=== PATIENT | female | born 1960 | race Caucasian/White ===

== ENCOUNTER 2020-05-29 10:36 | Inpatient (IN) | payer MEDICAID, OTHER ==
[2020-05-29] MEDS ORDERED: Sodium Chloride 0.9% 10 ML Syringe FLUSH PRN ×2 (11:17→11:27)
[2020-05-29] MEDS ORDERED: Ondansetron 4 MG/2 ML SDV IVPUSH ONE (11:19)
[2020-05-29] MEDS ORDERED: Sodium Chloride 0.9% 1,000 ML IV STA (11:19)
[2020-05-29] MEDS ORDERED: HYDROmorphone 0.5 MG/0.5 ML Syringe IVPUSH ONE (11:19)
[2020-05-29] MEDS ORDERED: Ketorolac 30 MG/ML SDV IVPUSH ONE (11:20)
[2020-05-29] MEDS ORDERED: Iopamidol 612 MG/ML 100 ML Bottle IVPUSH ONE (11:27)
--- NOTE | 2020-05-29 11:59 | EDM.PDOC ---
ED HPI GENERAL MEDICAL PROBLEM - General Chief Complaint: Skin Complaint Stated Complaint: FEVER/HIGH BP/ABSCESS OF BUTTOCK Time Seen by Provider: 05/29/20 11:03 Source of Information: Reports: Patient, RN Notes Reviewed History Limitations: Reports: No Limitations, Other - History of Present Illness INITIAL COMMENTS - FREE TEXT/NARRATIVE: Patient is a 60-year-old female presenting to the emergency department with complaints of a painful, red, area of swelling to her right buttocks. She first noticed the area 4 days ago and it has been rapidly increasing in size and severity since that time. Patient states that she has a history of MRSA and has had numerous infections requiring hospitalization for IV antibiotics. She states yesterday she had a fever of 101. She was afebrile in triage, however she states she did take some Excedrin this morning. She does complain of nausea with no vomiting. Patient has a history of hypertension and type 2 diabetes. States that she is supposed to be taking blood pressure medications, however she has not followed up with a primary care provider since moving to the area 1 year ago. Blood pressure was found to be significantly elevated on triage at 225/113. She denies headache, dizziness, or vision changes. Right Buttock Pain Score (Numeric/FACES): 10 - Related Data Allergies Allergy/AdvReac Type Severity Reaction Status Date / Time adhesive tape Allergy Severe Rash Verified 05/29/20 11:08 Home Meds: Home Meds Aspirin/Acetaminophen/Caffeine [Excedrin Migraine Caplet] 1 each PO DAILY PRN 05/29/20 [History] Past Medical History Cardiovascular History: Reports: High Cholesterol, Hypertension SOLUTIONS SPECIALIST History: Reports: Musculoskeletal History: Reports: Other (See Below) Other Musculoskeletal History: RLS Endocrine/Metabolic History: Reports: Diabetes, Type II, Obesity/BMI 30+ - Infectious Disease History Infectious Disease History: Reports: MRSA - Past Surgical History HEENT Surgical History: Reports: Adenoidectomy, Tonsillectomy GI Surgical History: Reports: Cholecystectomy Female Surgical History: Reports: Hysterectomy Social & Family History - Tobacco Use Tobacco Use Status *Q: Current Every Day Tobacco User Years of Tobacco use: 35 Packs/Tins Daily: 0.5 - Caffeine Use Caffeine Use: Reports: None - Recreational Drug Use Recreational Drug Use: No ED ROS GENERAL - Review of Systems Review Of Systems: See Below Constitutional: Reports: Fever, Chills. Denies: Weakness HEENT: Reports: No Symptoms Respiratory: Reports: No Symptoms. Denies: Shortness of Breath, Cough Cardiovascular: Reports: No Symptoms Endocrine: Reports: No Symptoms GI/Abdominal: Reports: Nausea. Denies: Abdominal Pain, Diarrhea, Vomiting : Reports: No Symptoms Musculoskeletal: Reports: No Symptoms Skin: Reports: Other (Red, swollen, painful area to right buttocks.) Neurological: Reports: No Symptoms Psychiatric: Reports: No Symptoms Hematologic/Lymphatic: Reports: No Symptoms Immunologic: Reports: No Symptoms ED EXAM, SKIN/RASH Exam: See Below Exam Limited By: No Limitations General Appearance: Alert, WD/WN, No Apparent Distress Respiratory/Chest: No Respiratory Distress, Lungs Clear, Normal Breath Sounds, No Accessory Muscle Use, Chest Non-Tender Cardiovascular: Normal Peripheral Pulses, Regular Rate, Rhythm, No Edema, No Gallop, No JVD, No Murmur, No Rub GI/Abdominal: Normal Bowel Sounds, Soft, Non-Tender, No Organomegaly, No Distention, No Abnormal Bruit, No Mass Neurological: Alert, Oriented, CN II-XII Intact, Normal Cognition, Normal Gait, Normal Reflexes, No Motor/Sensory Deficits Psychiatric: Normal Affect, Normal Mood Skin: Other (10 cm area of redness and warmth with a 1.5 cm black scab to the right buttocks. Surrounding soft tissue swelling measures aprox 20 cm x 20 cm) Course - Vital Signs Last Recorded V/S: Last Vital Signs Temp 97.3 F 05/29/20 11:05 Pulse 78 05/29/20 13:30 Resp 16 05/29/20 13:30 BP 169/86 H 05/29/20 13:30 Pulse Ox 95 05/29/20 13:30 - Orders/Labs/Meds Orders: Active Orders 24 hr Category Date Time Status Peripheral IV Care [RC] . DIRECTED Care 05/29/20 11:18 Active Pelvis w Cont [CT] Stat Exams 05/29/20 11:24 Taken CULTURE BLOOD [BC] Stat Lab 05/29/20 11:30 Received CULTURE BLOOD [BC] Stat Lab 05/29/20 12:50 Received Pharmacy to Dose - Vancomycin Med 05/29/20 13:00 Active 1 dose .XX ASDIRECTED PRN Sodium Chloride 0.9% [Normal Saline] 1,000 ml Med 05/29/20 11:19 Active IV NOW Sodium Chloride 0.9% [Saline Flush] Med 05/29/20 11:17 Active 10 ml FLUSH ASDIRECTED PRN Sodium Chloride 0.9% [Saline Flush] Med 05/29/20 11:27 Active 10 ml FLUSH ONETIME PRN Vancomycin 1.75 gm Med 05/29/20 13:30 Active Sodium Chloride 0.9% [Normal Saline] 500 ml IV ONETIME Blood Culture x2 Reflex Set [OM.PC] Stat Ot 05/29/20 11:18 Ordered Peripheral IV Insertion Adult [OM.PC] Stat Ot 05/29/20 11:18 Ordered Medication Orders Sodium Chloride (Normal Saline) 1,000 mls @ 150 mls/hr IV NOW STA Stop: 05/29/20 17:58 Last Admin: 05/29/20 11:51 Dose: 150 mls/hr Documented by: NAFISAERELI Vancomycin HCl 1.75 gm/ Sodium (Chloride) 500 mls @ 250 mls/hr IV ONETIME ONE Stop: 05/29/20 15:29 Last Admin: 05/29/20 13:16 Dose: 250 mls/hr Documented by: NAFISAERELI Sodium Chloride (Saline Flush) 10 ml FLUSH ASDIRECTED PRN PRN Reason: Keep Vein Open Last Admin: 05/29/20 11:51 Dose: 10 ml Documented by: EBERELI Sodium Chloride (Saline Flush) 10 ml FLUSH ONETIME PRN PRN Reason: IV FLUSH Last Admin: 05/29/20 12:15 Dose: 10 ml Documented by: GEMMA Vancomycin HCl (Pharmacy To Dose - Vancomycin) 1 dose .XX ASDIRECTED PRN PRN Reason: RX TO DOSE VANCO Labs: Laboratory Tests 05/29/20 05/29/20 05/29/20 Range/Units 11:30 11:30 11:30 WBC 13.94 H (3.98-10.04) K/mm3 RBC 4.62 (3.98-5.22) M/mm3 Hgb 13.9 (11.2-15.7) gm/dl Hct 42.4 (34.1-44.9) % MCV 91.8 (79.4-94.8) fl MCH 30.1 (25.6-32.2) pg MCHC 32.8 (32.2-35.5) g/dl RDW Std Deviation 44.5 (36.4-46.3) fL Plt Count 220 (182-369) K/mm3 MPV 10.0 (9.4-12.3) fl Neut % (Auto) 78.4 H (34.0-71.1) % Lymph % (Auto) 12.5 L (19.3-51.7) % [place] % (Auto) 7.9 (4.7-12.5) % Eos % (Auto) 0.6 L (0.7-5.8) Baso % (Auto) 0.1 (0.1-1.2) % Neut # (Auto) 10.93 H (1.56-6.13) K/mm3 Lymph # (Auto) 1.74 (1.18-3.74) K/mm3 [place] # (Auto) 1.10 H (0.24-0.36) K/mm3 Eos # (Auto) 0.08 (0.04-0.36) K/mm3 Baso # (Auto) 0.02 (0.01-0.08) K/mm3 Manual Slide Review Normal smear Sodium 137 (136-145) mEq/L Potassium 4.3 (3.5-5.1) mEq/L Chloride 101 (98-107) mEq/L Carbon Dioxide 24 (21-32) mEq/L Anion Gap 16.3 H (5-15) BUN 18 (7-18) mg/dL Creatinine 1.2 H (0.55-1.02) mg/dL Est Cr Clr Drug Dosing 47.84 mL/min Estimated GFR (MDRD) 46 (>60) mL/min BUN/Creatinine Ratio 15.0 (14-18) Glucose 161 H (74-106) mg/dL Lactic Acid 1.0 (0.4-2.0) mmol/L Calcium 9.1 (8.5-10.1) mg/dL Total Bilirubin 0.5 (0.2-1.0) mg/dL AST 15 (15-37) U/L ALT 28 (14-59) U/L Alkaline Phosphatase 101 (46-116) U/L C-Reactive Protein 17.3 H* (<1.0) mg/dL Total Protein 7.5 (6.4-8.2) g/dl Albumin 3.1 L (3.4-5.0) g/dl Globulin 4.4 gm/dL Albumin/Globulin Ratio 0.7 L (1-2) SARS-CoV-2 RNA (NATHEN) (NEGATIVE) 05/29/20 Range/Units 12:18 WBC (3.98-10.04) K/mm3 RBC (3.98-5.22) M/mm3 Hgb (11.2-15.7) gm/dl Hct (34.1-44.9) % MCV (79.4-94.8) fl MCH (25.6-32.2) pg MCHC (32.2-35.5) g/dl RDW Std Deviation (36.4-46.3) fL Plt Count (182-369) K/mm3 MPV (9.4-12.3) fl Neut % (Auto) (34.0-71.1) % Lymph % (Auto) (19.3-51.7) % [place] % (Auto) (4.7-12.5) % Eos % (Auto) (0.7-5.8) Baso % (Auto) (0.1-1.2) % Neut # (Auto) (1.56-6.13) K/mm3 Lymph # (Auto) (1.18-3.74) K/mm3 [place] # (Auto) (0.24-0.36) K/mm3 Eos # (Auto) (0.04-0.36) K/mm3 Baso # (Auto) (0.01-0.08) K/mm3 Manual Slide Review Sodium (136-145) mEq/L Potassium (3.5-5.1) mEq/L Chloride (98-107) mEq/L Carbon Dioxide (21-32) mEq/L Anion Gap (5-15) BUN (7-18) mg/dL Creatinine (0.55-1.02) mg/dL Est Cr Clr Drug Dosing mL/min Estimated GFR (MDRD) (>60) mL/min BUN/Creatinine Ratio (14-18) Glucose (74-106) mg/dL Lactic Acid (0.4-2.0) mmol/L Calcium (8.5-10.1) mg/dL Total Bilirubin (0.2-1.0) mg/dL AST (15-37) U/L ALT (14-59) U/L Alkaline Phosphatase (46-116) U/L C-Reactive Protein (<1.0) mg/dL Total Protein (6.4-8.2) g/dl Albumin (3.4-5.0) g/dl Globulin gm/dL Albumin/Globulin Ratio (1-2) SARS-CoV-2 RNA (NATHEN) Negative (NEGATIVE) Meds: Medications Generic Name Dose Route Start Last Admin Trade Name Lroi PRN Reason Stop Dose Admin Sodium Chloride 1,000 mls @ 150 mls/hr 05/29/20 11:19 05/29/20 11:51 Normal Saline IV 05/29/20 17:58 150 mls/hr NOW STA Administration Vancomycin HCl 1.75 gm/ Sodium 500 mls @ 250 mls/hr 05/29/20 13:30 05/29/20 13:16 Chloride IV 05/29/20 15:29 250 mls/hr ONETIME ONE Administration Sodium Chloride 10 ml 05/29/20 11:17 05/29/20 11:51 Saline Flush FLUSH 10 ml ASDIRECTED PRN Administration Keep Vein Open Sodium Chloride 10 ml 05/29/20 11:27 05/29/20 12:15 Saline Flush FLUSH 10 ml ONETIME PRN Administration IV FLUSH Vancomycin HCl 1 dose 05/29/20 13:00 Pharmacy To Dose - Vancomycin .XX ASDIRECTED PRN RX TO DOSE VANCO Discontinued Medications Generic Name Dose Route Start Last Admin Trade Name Lori PRN Reason Stop Dose Admin Hydralazine HCl 10 mg 05/29/20 12:44 05/29/20 12:50 Apresoline IVPUSH 05/29/20 12:45 10 mg ONETIME ONE Administration Hydromorphone HCl 0.5 mg 05/29/20 11:19 Dilaudid IVPUSH 05/29/20 11:20 ONETIME ONE Iopamidol 100 ml 05/29/20 11:27 05/29/20 12:15 Isovue-300 (61%) IVPUSH 05/29/20 11:28 100 ml ONETIME ONE Administration Ketorolac Tromethamine 30 mg 05/29/20 11:20 05/29/20 11:51 Toradol IVPUSH 05/29/20 11:21 30 mg ONETIME ONE Administration Ondansetron HCl 4 mg 05/29/20 11:19 05/29/20 11:50 Zofran IVPUSH 05/29/20 11:20 4 mg ONETIME ONE Administration Vancomycin HCl 1 dose 05/29/20 12:44 Pharmacy To Dose - Vancomycin .XX 05/29/20 12:45 ONETIME ONE - Re-Assessments/Exams Free Text/Narrative Re-Assessment/Exam: 05/29/20 12:53 Hematology was significant for WBC elevated at 13.94 with a left shift, anion gap 16.3, CRP 17.3. Lactic acid was normal. Blood pressure remains elevated at 181/104. I ordered hydralazine [address] scan of the pelvis shows extensive swelling and stranding of the subcutaneous tissues of the right buttocks most likely cellulitis. No focal collection or other evidence of abscess. Given patient's history of recurrent MRSA infections, ordered vancomycin to be given IV. Spoke with hospitalist, Dr. Brown. He is excepted the patient for admission. Patient's pain is tolerable at this point with the Toradol. She does not want any narcotic medications as of now as they make her "groggy ". Departure - Departure Time of Disposition: 12:53 Disposition: Admitted As Inpatient 68 Condition: Good Clinical Impression: Hypertension, uncontrolled Cellulitis Qualifiers: Site of cellulitis: buttock Qualified Code(s): L03.317 - Cellulitis of buttock - Discharge Information Sepsis Event Note (ED) - Evaluation Sepsis Screening Result: No Definite Risk - Focused Exam Vital Signs: Vital Signs Temp Pulse Resp BP Pulse Ox 05/29/20 13:00 179/94 H 05/29/20 12:45 74 181/104 H 94 L 05/29/20 12:30 183/94 H 05/29/20 11:05 97.3 F 86 20 225/113 H 98 - My Orders Last 24 Hours: My Active Orders 05/29/20 11:17 Sodium Chloride 0.9% [Saline Flush] 10 ml FLUSH ASDIRECTED PRN 05/29/20 11:18 Peripheral IV Care [RC] . DIRECTED Blood Culture x2 Reflex Set [OM.PC] Stat Peripheral IV Insertion Adult [OM.PC] Stat 05/29/20 11:19 Sodium Chloride 0.9% [Normal Saline] 1,000 ml IV NOW 05/29/20 11:24 Pelvis w Cont [CT] Stat 05/29/20 11:27 Sodium Chloride 0.9% [Saline Flush] 10 ml FLUSH ONETIME PRN 05/29/20 11:30 CULTURE BLOOD [BC] Stat 05/29/20 12:50 CULTURE BLOOD [BC] Stat 05/29/20 13:00 Pharmacy to Dose - Vancomycin 1 dose .XX ASDIRECTED PRN 05/29/20 13:30 Vancomycin 1.75 gm Sodium Chloride 0.9% [Normal Saline] 500 ml IV ONETIME - Assessment/Plan Last 24 Hours: My Active Orders 05/29/20 11:17 Sodium Chloride 0.9% [Saline Flush] 10 ml FLUSH ASDIRECTED PRN 05/29/20 11:18 Peripheral IV Care [RC] . DIRECTED Blood Culture x2 Reflex Set [OM.PC] Stat Peripheral IV Insertion Adult [OM.PC] Stat 05/29/20 11:19 Sodium Chloride 0.9% [Normal Saline] 1,000 ml IV NOW 05/29/20 11:24 Pelvis w Cont [CT] Stat 05/29/20 11:27 Sodium Chloride 0.9% [Saline Flush] 10 ml FLUSH ONETIME PRN 05/29/20 11:30 CULTURE BLOOD [BC] Stat 05/29/20 12:50 CULTURE BLOOD [BC] Stat 05/29/20 13:00 Pharmacy to Dose - Vancomycin 1 dose .XX ASDIRECTED PRN 05/29/20 13:30 Vancomycin 1.75 gm Sodium Chloride 0.9% [Normal Saline] 500 ml IV ONETIME
[2020-05-29] MEDS ORDERED: hydrALAZINE 20 MG/ML SDV IVPUSH ONE (12:44)
[2020-05-29] MEDS ORDERED: Vancomycin 1.75 GM in Sodium Chloride 0.9% 500 ML IV ONE (13:30)
--- NOTE | 2020-05-29 15:21 | PCM.HP.2 ---
H&P History of Present Illness - General Date of Service: 05/29/20 Admit Problem/Dx: Admission Diagnosis/Problem Admission Diagnosis/Problem Cellulitis - History of Present Illness Initial Comments - Free Text/Narative: 60-year-old female with history of MRSA skin lesions presented to the emergency department with a 4-day history of pain, swelling, and redness of the right buttocks. Patient states that she had a fever over 101 yesterday and a history of prediabetes. She has been on medicine in the past but stopped all of her medications. She moved to [place] proximally 1 year ago and has not established with a primary care provider. Patient denies any shortness of breath, wheezing, or chest pain. She has a history of migraine headache disorder. She takes Excedrin migraine regularly for her headaches. She also drinks large amounts of coffee. When I did visit with her today she complained of a headache. 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: Musculoskeletal History: Reports: Arthritis Other Musculoskeletal History: RLS Neurological History: Reports: Migraines Psychiatric History: Reports: Anxiety, Depression Endocrine/Metabolic History: Reports: Diabetes, Type II, Obesity/BMI 30+, Other (See Below) Other Endocrine/Metabolic History: "pre-diabetes" Dermatologic History: Reports: Cellulitis Other Dermatologic History: boils on buttocks - Infectious Disease History Infectious Disease History: Reports: MRSA - Past Surgical History HEENT Surgical History: Reports: Adenoidectomy, Tonsillectomy GI Surgical History: Reports: Cholecystectomy Female Surgical History: Reports: Hysterectomy Social & Family History - Tobacco Use Tobacco Use Status *Q: Current Some Day Tobacco User Years of Tobacco use: 43 Packs/Tins Daily: 0.5 Used Tobacco, but Quit: No Second Hand Smoke Exposure: No - Caffeine Use Caffeine Use: Reports: Coffee - Recreational Drug Use Recreational Drug Use: No H&P Review of Systems - Review of Systems: Review Of Systems: Comprehensive ROS is negative, except as noted in HPI. Exam - Exam Exam: See Below - Vital Signs Vital Signs: Last Vital Signs Temp 98.2 F 05/29/20 14:31 Pulse 101 H 05/29/20 14:31 Resp 16 05/29/20 14:31 BP 163/84 H 05/29/20 14:31 Pulse Ox 97 05/29/20 14:31 Weight: 255 lb 6.4 oz - Exam Quality Assessment: No: Supplemental Oxygen General: Alert, Oriented, 4 HEENT: Conjunctiva Clear, Hearing Intact, Mucosa Moist & [place] Neck: Supple, Trachea Midline, 2 Lungs: Clear to Auscultation, Normal Respiratory Effort Cardiovascular: Regular Rate, Regular Rhythm GI/Abdominal Exam: Normal Bowel Sounds, Soft, Non-Tender, No Organomegaly, No Distention, No Abnormal Bruit, No Mass, Other (Obese) Extremities: Normal Inspection, Normal Range of Motion, Non-Tender, No Pedal Edema, Normal Capillary Refill Skin: Other (Eschar approximately 1 cm in diameter on the right buttocks with surrounding area of erythema of approximately 9 to 10 cm. Well demarcated.) Neuro Extensive - Mental Status: Alert, Oriented x3, Normal Mood/Affect, Normal Cognition, Memory Intact Psychiatric: Alert, Normal Affect, Normal Mood - Patient Data Lab Results Last 24 hrs: Laboratory Results - last 24 hr 05/29/20 05/29/20 05/29/20 Range/Units 11:30 11:30 11:30 WBC 13.94 H (3.98-10.04) K/mm3 RBC 4.62 (3.98-5.22) M/mm3 Hgb 13.9 (11.2-15.7) gm/dl Hct 42.4 (34.1-44.9) % MCV 91.8 (79.4-94.8) fl MCH 30.1 (25.6-32.2) pg MCHC 32.8 (32.2-35.5) g/dl RDW Std Deviation 44.5 (36.4-46.3) fL Plt Count 220 (182-369) K/mm3 MPV 10.0 (9.4-12.3) fl Neut % (Auto) 78.4 H (34.0-71.1) % Lymph % (Auto) 12.5 L (19.3-51.7) % [place] % (Auto) 7.9 (4.7-12.5) % Eos % (Auto) 0.6 L (0.7-5.8) Baso % (Auto) 0.1 (0.1-1.2) % Neut # (Auto) 10.93 H (1.56-6.13) K/mm3 Lymph # (Auto) 1.74 (1.18-3.74) K/mm3 [place]ell # (Auto) 1.10 H (0.24-0.36) K/mm3 Eos # (Auto) 0.08 (0.04-0.36) K/mm3 Baso # (Auto) 0.02 (0.01-0.08) K/mm3 Manual Slide Review Normal smear Sodium 137 (136-145) mEq/L Potassium 4.3 (3.5-5.1) mEq/L Chloride 101 (98-107) mEq/L Carbon Dioxide 24 (21-32) mEq/L Anion Gap 16.3 H (5-15) BUN 18 (7-18) mg/dL Creatinine 1.2 H (0.55-1.02) mg/dL Est Cr Clr Drug Dosing 47.84 mL/min Estimated GFR (MDRD) 46 (>60) mL/min BUN/Creatinine Ratio 15.0 (14-18) Glucose 161 H (74-106) mg/dL Lactic Acid 1.0 (0.4-2.0) mmol/L Calcium 9.1 (8.5-10.1) mg/dL Total Bilirubin 0.5 (0.2-1.0) mg/dL AST 15 (15-37) U/L ALT 28 (14-59) U/L Alkaline Phosphatase 101 (46-116) U/L C-Reactive Protein 17.3 H* (<1.0) mg/dL Total Protein 7.5 (6.4-8.2) g/dl Albumin 3.1 L (3.4-5.0) g/dl Globulin 4.4 gm/dL Albumin/Globulin Ratio 0.7 L (1-2) SARS-CoV-2 RNA (NATHEN) (NEGATIVE) 05/29/20 Range/Units 12:18 WBC (3.98-10.04) K/mm3 RBC (3.98-5.22) M/mm3 Hgb (11.2-15.7) gm/dl Hct (34.1-44.9) % MCV (79.4-94.8) fl MCH (25.6-32.2) pg MCHC (32.2-35.5) g/dl RDW Std Deviation (36.4-46.3) fL Plt Count (182-369) K/mm3 MPV (9.4-12.3) fl Neut % (Auto) (34.0-71.1) % Lymph % (Auto) (19.3-51.7) % [place] % (Auto) (4.7-12.5) % Eos % (Auto) (0.7-5.8) Baso % (Auto) (0.1-1.2) % Neut # (Auto) (1.56-6.13) K/mm3 Lymph # (Auto) (1.18-3.74) K/mm3 [place]ell # (Auto) (0.24-0.36) K/mm3 Eos # (Auto) (0.04-0.36) K/mm3 Baso # (Auto) (0.01-0.08) K/mm3 Manual Slide Review Sodium (136-145) mEq/L Potassium (3.5-5.1) mEq/L Chloride (98-107) mEq/L Carbon Dioxide (21-32) mEq/L Anion Gap (5-15) BUN (7-18) mg/dL Creatinine (0.55-1.02) mg/dL Est Cr Clr Drug Dosing mL/min Estimated GFR (MDRD) (>60) mL/min BUN/Creatinine Ratio (14-18) Glucose (74-106) mg/dL Lactic Acid (0.4-2.0) mmol/L Calcium (8.5-10.1) mg/dL Total Bilirubin (0.2-1.0) mg/dL AST (15-37) U/L ALT (14-59) U/L Alkaline Phosphatase (46-116) U/L C-Reactive Protein (<1.0) mg/dL Total Protein (6.4-8.2) g/dl Albumin (3.4-5.0) g/dl Globulin gm/dL Albumin/Globulin Ratio (1-2) SARS-CoV-2 RNA (NATHEN) Negative (NEGATIVE) Result Diagrams: 05/29/20 11:30 05/29/20 11:30 Sepsis Event Note - Evaluation Sepsis Screening Result: No Definite Risk - Focused Exam Vital Signs: Vital Signs Temp Temp Pulse Pulse Resp BP BP 05/29/20 14:31 98.2 F 101 H 16 163/84 H 05/29/20 13:30 78 16 169/86 H 05/29/20 13:00 179/94 H 05/29/20 12:45 74 181/104 H 05/29/20 12:30 183/94 H 05/29/20 11:05 97.3 F 86 20 225/113 H Pulse Ox 05/29/20 14:31 97 05/29/20 13:30 95 05/29/20 13:00 05/29/20 12:45 94 L 05/29/20 12:30 05/29/20 11:05 98 - Problem List (1) Type 2 diabetes mellitus SNOMED Code(s): 71320118 ICD Code: E11.9 - TYPE 2 DIABETES MELLITUS WITHOUT COMPLICATIONS Status: Acute Current Visit: Yes (2) Smoking SNOMED Code(s): 09438997 ICD Code: F17.200 - NICOTINE DEPENDENCE, UNSPECIFIED, UNCOMPLICATED Status: Acute Current Visit: Yes (3) Cellulitis SNOMED Code(s): 305304414 ICD Code: L03.90 - CELLULITIS, UNSPECIFIED Status: Acute Current Visit: Yes Qualifiers: Site of cellulitis: buttock Qualified Code(s): L03.317 - Cellulitis of buttock (4) Hypertension, uncontrolled SNOMED Code(s): 17051274, 70186795 ICD Code: I10 - ESSENTIAL (PRIMARY) HYPERTENSION Status: Acute Current Visit: Yes (5) Acute renal injury SNOMED Code(s): 69346181, 05943514 ICD Code: N17.9 - ACUTE KIDNEY FAILURE, UNSPECIFIED Status: Acute Current Visit: Yes Problem Details: Acute versus chronic renal insufficiency. Patient has history of diabetes and also takes large amounts of NSAIDs for headaches daily. (6) Headache SNOMED Code(s): 56476936 ICD Code: R51.9 - HEADACHE, UNSPECIFIED Status: Acute Current Visit: Yes (7) Hypoalbuminemia SNOMED Code(s): 325675570 ICD Code: E88.09 - OTH DISORDERS OF PLASMA-PROTEIN METABOLISM, NEC Status: Acute Current Visit: Yes Problem List Initiated/Reviewed/Updated: Yes Orders Last 24hrs: Active Orders 24 hr Category Date Time Status Patient Status [ADT] Routine ADT 05/29/20 13:19 Active Pelvis w Cont [CT] Stat Exams 05/29/20 11:24 Taken CULTURE BLOOD [BC] Stat Lab 05/29/20 11:30 Received CULTURE BLOOD [BC] Stat Lab 05/29/20 12:50 Received VANCOMYCIN TROUGH [CHEM] Timed Lab 05/31/20 12:30 Ordered Nicotine [Habitrol] Med 05/29/20 16:00 Active 14 mg TRDERM Q24H Pharmacy to Dose - Vancomycin Med 05/29/20 13:00 Active 1 dose .XX ASDIRECTED PRN Remove Patch Med 05/30/20 16:00 Active 1 ea TRDERM Q24H Sodium Chloride 0.9% [Normal Saline] 1,000 ml Med 05/29/20 11:19 Active IV NOW Sodium Chloride 0.9% [Saline Flush] Med 05/29/20 11:17 Active 10 ml FLUSH ASDIRECTED PRN Vancomycin 1 gm Med 05/30/20 01:30 Active Vancomycin 250 mg Sodium Chloride 0.9% [Normal Saline] 250 ml IV Q12H Vancomycin 1.75 gm Med 05/29/20 13:30 Active Sodium Chloride 0.9% [Normal Saline] 500 ml IV ONETIME Blood Culture x2 Reflex Set [OM.PC] Stat Oth 05/29/20 11:18 Ordered Peripheral IV Insertion Adult [OM.PC] Stat Oth 05/29/20 11:18 Ordered Medication Orders Sodium Chloride (Normal Saline) 1,000 mls @ 150 mls/hr IV NOW STA Stop: 05/29/20 17:58 Last Admin: 05/29/20 11:51 Dose: 150 mls/hr Documented by: EBERELI Vancomycin HCl 1.75 gm/ Sodium (Chloride) 500 mls @ 250 mls/hr IV ONETIME ONE Stop: 05/29/20 15:29 Last Admin: 05/29/20 13:16 Dose: 250 mls/hr Documented by: EBERELI Vancomycin HCl 1 gm/Vancomycin HCl 250 mg/ Sodium Chloride 250 mls @ 166.667 mls/hr IV Q12H ALLYSSA Miscellaneous Information (Remove Patch) 1 ea TRDERM Q24H ALLYSSA Nicotine (Habitrol) 14 mg TRDERM Q24H ALLYSSA Sodium Chloride (Saline Flush) 10 ml FLUSH ASDIRECTED PRN PRN Reason: Keep Vein Open Last Admin: 05/29/20 11:51 Dose: 10 ml Documented by: NIKKI Vancomycin HCl (Pharmacy To Dose - Vancomycin) 1 dose .XX ASDIRECTED PRN PRN Reason: RX TO DOSE VANCO Assessment/Plan Comment:: Assessment 60-year-old female with history of MRSA skin infection presented to the emergency department with pain, redness, and swelling of her right buttocks starting 4 days ago. * Cellulitis right butt cheek with eschar * WBC 13.9 with 10.9 absolute neutrophils and normal smear. * C-reactive protein 17.3 * Mild anion gap of 16.3, normal lactic acid * Procalcitonin pending * Started on vancomycin in the emergency department for history of MRSA * Blood cultures done in the emergency department Uncontrolled/untreated hypertension * Blood pressure significantly elevated on admission with highest blood pressure of 225/113. * Given hydralazine 10 mg IV in the emergency department * Blood pressure continues to be elevated. * Renal dysfunction also noted * Pain may be contributing to some degree of hypertension Type 2 diabetes mellitus * Hemoglobin A1c of 6.5 * Blood sugars 160 on presentation * No current treatment for her diabetes * Unknown any complications Acute versus chronic renal insufficiency * Patient states she has a history of headaches and takes ibuprofen and Excedrin Migraine. * Patient also has a history of diabetes and hypertension Headache disorder, unknown type * She likely has some degree of rebound headache with her use of Excedrin Migraine * NSAID use is likely worsening renal function * Try to avoid NSAIDs while hospitalized Hypoalbuminemia * UA not performed so unknown if this is secondary to renal loss or protein malnutrition Tobaccoism * Smokes half pack per day for approximately 35 years * Patient requesting patch Plan * Admit to floor * Continue vancomycin, pharmacy to dose * Wound therapy to treat buttocks wound * Follow white count, C-reactive protein, procalcitonin, temperature, and measure and familia cellulitis * Blood cultures drawn in the emergency department * Start losartan 50 mg daily * Yet urine for microalbumin to creatinine ratio and spot protein check * Sliding scale insulin * Hydralazine 10 mg IV every 4 hours as needed systolic blood pressure greater than 180 and diastolic blood pressure greater than 110 * [place] 10 mg every 4 hours as needed pain. * Counseled on smoking cessation and nicotine patch prescribed * VTE prophylaxis with Lovenox * CODE STATUS: Full code - Mortality Measure Prognosis:: Good
[2020-05-29] MEDS ORDERED: Ondansetron 4 MG/2 ML SDV IV PRN (15:34)
[2020-05-29] MEDS ORDERED: Nicotine 14 MG/24 Hr Patch TRDERM SCH (16:00)
[2020-05-29 16:20] LABS: HEMOGLOBIN A1C 6.5 % (4.50-6.20)
[2020-05-29] MEDS ORDERED: traMADol 50 MG Tab PO ONE ×2 (16:56→18:11)
[2020-05-29] MEDS ORDERED: hydrALAZINE 20 MG/ML SDV IVPUSH PRN (20:50)
[2020-05-29] MEDS: diphenhydrAMINE 25 MG Cap PO PRN (21:57)
[2020-05-29] MEDS: Acetaminophen/HYDROcodone 325-10 MG Tab PO PRN (21:58)
[2020-05-30] MEDS: Vancomycin 1 GM, Vancomycin 250 MG in Sodium Chloride 0.9% 250 ML IV SCH ×2 (00:36→14:32)
[2020-05-30] MEDS: Acetaminophen/HYDROcodone 325-10 MG Tab PO PRN ×5 (02:16→19:07)
[2020-05-30] MEDS: Losartan 50 MG Tab PO SCH (08:39)
[2020-05-30] MEDS: Enoxaparin 40 MG/0.4 ML Syringe SUBCUT SCH (08:40)
--- NOTE | 2020-05-30 09:45 | PCM.PN ---
- General Info Date of Service: 05/30/20 Admission Dx/Problem (Free Text): Admission Diagnosis/Problem Admission Diagnosis/Problem Cellulitis Subjective Update: In to see Sandy. She reports that her wound is the only thing hurting. She reports that it hurt worse with PT when they were debriding wound. Nursing reports PT irrigated with saline, applied Medihoney and a nonadhesive bandage. Wound is showing improvement. Patient's headache has resolved. We have ordered diabetic education to see the patient. Urine microalbumin is back and is quite elevated. She is spilling protein on her urine. Continue current plan of care. Functional Status: Reports: Pain Controlled, Tolerating Diet, Ambulating, Urinating, New Symptoms - Review of Systems General: Reports: No Symptoms. Denies: Fever, Weakness, Fatigue, Malaise, Chills HEENT: Reports: No Symptoms. Denies: Headaches (resolved - but significant yesterday ), Sore Throat Pulmonary: Reports: No Symptoms. Denies: Shortness of Breath, Pleuritic Chest Pain, Cough, Sputum, Wheezing Cardiovascular: Reports: No Symptoms. Denies: Chest Pain, Palpitations, Dyspnea on Exertion Gastrointestinal: Reports: No Symptoms. Denies: Abdominal Pain, Constipation, Diarrhea, Nausea, Vomiting Genitourinary: Reports: No Symptoms. Denies: Pain Musculoskeletal: Reports: No Symptoms Skin: Reports: Other (wound over right buttocks) Neurological: Reports: No Symptoms. Denies: Confusion, Numbness, Pre-Existing Deficit, Tingling, Difficulty Walking, Weakness, Gait Disturbance Psychiatric: Reports: No Symptoms - Patient Data Vitals - Most Recent: Last Vital Signs Temp 97.9 F 05/30/20 06:23 Pulse 75 05/30/20 06:23 Resp 18 05/30/20 06:23 BP 140/80 05/30/20 08:39 Pulse Ox 96 05/30/20 06:23 Weight - Most Recent: 257 lb 1.6 oz I&O - Last 24 Hours: Intake & Output 05/29/20 05/30/20 05/30/20 22:59 06:59 14:59 Intake Total 700 1350 Output Total 450 900 Balance 250 450 Lab Results Last 24 Hours: Laboratory Results - last 24 hr 05/29/20 05/29/20 05/29/20 Range/Units 11:30 11:30 11:30 WBC 13.94 H (3.98-10.04) K/mm3 RBC 4.62 (3.98-5.22) M/mm3 Hgb 13.9 (11.2-15.7) gm/dl Hct 42.4 (34.1-44.9) % MCV 91.8 (79.4-94.8) fl MCH 30.1 (25.6-32.2) pg MCHC 32.8 (32.2-35.5) g/dl RDW Std Deviation 44.5 (36.4-46.3) fL Plt Count 220 (182-369) K/mm3 MPV 10.0 (9.4-12.3) fl Neut % (Auto) 78.4 H (34.0-71.1) % Lymph % (Auto) 12.5 L (19.3-51.7) % [place] % (Auto) 7.9 (4.7-12.5) % Eos % (Auto) 0.6 L (0.7-5.8) Baso % (Auto) 0.1 (0.1-1.2) % Neut # (Auto) 10.93 H (1.56-6.13) K/mm3 Lymph # (Auto) 1.74 (1.18-3.74) K/mm3 [place] # (Auto) 1.10 H (0.24-0.36) K/mm3 Eos # (Auto) 0.08 (0.04-0.36) K/mm3 Baso # (Auto) 0.02 (0.01-0.08) K/mm3 Manual Slide Review Normal smear Sodium 137 (136-145) mEq/L Potassium 4.3 (3.5-5.1) mEq/L Chloride 101 (98-107) mEq/L Carbon Dioxide 24 (21-32) mEq/L Anion Gap 16.3 H (5-15) BUN 18 (7-18) mg/dL Creatinine 1.2 H (0.55-1.02) mg/dL Est Cr Clr Drug Dosing 47.84 mL/min Estimated GFR (MDRD) 46 (>60) mL/min BUN/Creatinine Ratio 15.0 (14-18) Glucose 161 H (74-106) mg/dL POC Glucose (70-105) mg/dL Hemoglobin A1c (4.50-6.20) % Lactic Acid 1.0 (0.4-2.0) mmol/L Calcium 9.1 (8.5-10.1) mg/dL Phosphorus (2.6-4.7) mg/dL Magnesium (1.8-2.4) mg/dl Total Bilirubin 0.5 (0.2-1.0) mg/dL AST 15 (15-37) U/L ALT 28 (14-59) U/L Alkaline Phosphatase 101 (46-116) U/L C-Reactive Protein 17.3 H* (<1.0) mg/dL NT-Pro-B Natriuret Pep (0-125) pg/mL Total Protein 7.5 (6.4-8.2) g/dl Albumin 3.1 L (3.4-5.0) g/dl Globulin 4.4 gm/dL Albumin/Globulin Ratio 0.7 L (1-2) Urine Color (Yellow) Urine Appearance (Clear) Urine pH (5.0-8.0) Ur Specific [place] (1.005-1.030) Urine Protein (Negative) Urine Glucose (UA) (Negative) Urine Ketones (Negative) Urine Occult Blood (Negative) Urine Nitrite (Negative) Urine Bilirubin (Negative) Urine Urobilinogen (0.2-1.0) Ur Leukocyte Esterase (Negative) Urine RBC (0-5) /hpf Urine WBC (0-5) /hpf Ur Squamous Epith Cells (0-5) /hpf Urine Bacteria (FEW) /hpf Urine Mucus (FEW) /hpf Ur Random Creatinine (30.0-125.0) mg/dL Ur Random Microalbumin (1.3-20.0) mg/L Microalb/Creat Ratio (0-30) mg/g SARS-CoV-2 RNA (NATHEN) (NEGATIVE) 05/29/20 05/29/20 05/29/20 Range/Units 11:30 12:18 19:45 WBC (3.98-10.04) K/mm3 RBC (3.98-5.22) M/mm3 Hgb (11.2-15.7) gm/dl Hct (34.1-44.9) % MCV (79.4-94.8) fl MCH (25.6-32.2) pg MCHC (32.2-35.5) g/dl RDW Std Deviation (36.4-46.3) fL Plt Count (182-369) K/mm3 MPV (9.4-12.3) fl Neut % (Auto) (34.0-71.1) % Lymph % (Auto) (19.3-51.7) % [place] % (Auto) (4.7-12.5) % Eos % (Auto) (0.7-5.8) Baso % (Auto) (0.1-1.2) % Neut # (Auto) (1.56-6.13) K/mm3 Lymph # (Auto) (1.18-3.74) K/mm3 [place] # (Auto) (0.24-0.36) K/mm3 Eos # (Auto) (0.04-0.36) K/mm3 Baso # (Auto) (0.01-0.08) K/mm3 Manual Slide Review Sodium (136-145) mEq/L Potassium (3.5-5.1) mEq/L Chloride (98-107) mEq/L Carbon Dioxide (21-32) mEq/L Anion Gap (5-15) BUN (7-18) mg/dL Creatinine (0.55-1.02) mg/dL Est Cr Clr Drug Dosing mL/min Estimated GFR (MDRD) (>60) mL/min BUN/Creatinine Ratio (14-18) Glucose (74-106) mg/dL POC Glucose 158 H (70-105) mg/dL Hemoglobin A1c 6.50 H (4.50-6.20) % Lactic Acid (0.4-2.0) mmol/L Calcium (8.5-10.1) mg/dL Phosphorus (2.6-4.7) mg/dL Magnesium (1.8-2.4) mg/dl Total Bilirubin (0.2-1.0) mg/dL AST (15-37) U/L ALT (14-59) U/L Alkaline Phosphatase (46-116) U/L C-Reactive Protein (<1.0) mg/dL NT-Pro-B Natriuret Pep (0-125) pg/mL Total Protein (6.4-8.2) g/dl Albumin (3.4-5.0) g/dl Globulin gm/dL Albumin/Globulin Ratio (1-2) Urine Color (Yellow) Urine Appearance (Clear) Urine pH (5.0-8.0) Ur Specific [place] (1.005-1.030) Urine Protein (Negative) Urine Glucose (UA) (Negative) Urine Ketones (Negative) Urine Occult Blood (Negative) Urine Nitrite (Negative) Urine Bilirubin (Negative) Urine Urobilinogen (0.2-1.0) Ur Leukocyte Esterase (Negative) Urine RBC (0-5) /hpf Urine WBC (0-5) /hpf Ur Squamous Epith Cells (0-5) /hpf Urine Bacteria (FEW) /hpf Urine Mucus (FEW) /hpf Ur Random Creatinine (30.0-125.0) mg/dL Ur Random Microalbumin (1.3-20.0) mg/L Microalb/Creat Ratio (0-30) mg/g SARS-CoV-2 RNA (NATHEN) Negative (NEGATIVE) 05/29/20 05/29/20 05/29/20 Range/Units 20:10 23:20 23:20 WBC (3.98-10.04) K/mm3 RBC (3.98-5.22) M/mm3 Hgb (11.2-15.7) gm/dl Hct (34.1-44.9) % MCV (79.4-94.8) fl MCH (25.6-32.2) pg MCHC (32.2-35.5) g/dl RDW Std Deviation (36.4-46.3) fL Plt Count (182-369) K/mm3 MPV (9.4-12.3) fl Neut % (Auto) (34.0-71.1) % Lymph % (Auto) (19.3-51.7) % [place] % (Auto) (4.7-12.5) % Eos % (Auto) (0.7-5.8) Baso % (Auto) (0.1-1.2) % Neut # (Auto) (1.56-6.13) K/mm3 Lymph # (Auto) (1.18-3.74) K/mm3 [place] # (Auto) (0.24-0.36) K/mm3 Eos # (Auto) (0.04-0.36) K/mm3 Baso # (Auto) (0.01-0.08) K/mm3 Manual Slide Review Sodium (136-145) mEq/L Potassium (3.5-5.1) mEq/L Chloride (98-107) mEq/L Carbon Dioxide (21-32) mEq/L Anion Gap (5-15) BUN (7-18) mg/dL Creatinine (0.55-1.02) mg/dL Est Cr Clr Drug Dosing mL/min Estimated GFR (MDRD) (>60) mL/min BUN/Creatinine Ratio (14-18) Glucose (74-106) mg/dL POC Glucose (70-105) mg/dL Hemoglobin A1c (4.50-6.20) % Lactic Acid (0.4-2.0) mmol/L Calcium (8.5-10.1) mg/dL Phosphorus (2.6-4.7) mg/dL Magnesium (1.8-2.4) mg/dl Total Bilirubin (0.2-1.0) mg/dL AST (15-37) U/L ALT (14-59) U/L Alkaline Phosphatase (46-116) U/L C-Reactive Protein (<1.0) mg/dL NT-Pro-B Natriuret Pep 316 H (0-125) pg/mL Total Protein (6.4-8.2) g/dl Albumin (3.4-5.0) g/dl Globulin gm/dL Albumin/Globulin Ratio (1-2) Urine Color Yellow (Yellow) Urine Appearance Clear (Clear) Urine pH 6.0 (5.0-8.0) Ur Specific [place] > or = 1.030 (1.005-1.030) Urine Protein 3+ H (Negative) Urine Glucose (UA) Negative (Negative) Urine Ketones Negative (Negative) Urine Occult Blood 1+ H (Negative) Urine Nitrite Negative (Negative) Urine Bilirubin Negative (Negative) Urine Urobilinogen 0.2 (0.2-1.0) Ur Leukocyte Esterase Negative (Negative) Urine RBC 0-5 (0-5) /hpf Urine WBC 0-5 (0-5) /hpf Ur Squamous Epith Cells 0-5 (0-5) /hpf Urine Bacteria Few (FEW) /hpf Urine Mucus Rare (FEW) /hpf Ur Random Creatinine 76.9 (30.0-125.0) mg/dL Ur Random Microalbumin 2510.5 H (1.3-20.0) mg/L Microalb/Creat Ratio 3264.6 H (0-30) mg/g SARS-CoV-2 RNA (NATHEN) (NEGATIVE) 05/30/20 05/30/20 05/30/20 Range/Units 04:42 04:42 04:42 WBC 12.83 H (3.98-10.04) K/mm3 RBC 4.14 (3.98-5.22) M/mm3 Hgb 12.5 (11.2-15.7) gm/dl Hct 38.4 (34.1-44.9) % MCV 92.8 (79.4-94.8) fl MCH 30.2 (25.6-32.2) pg MCHC 32.6 (32.2-35.5) g/dl RDW Std Deviation 45.6 (36.4-46.3) fL Plt Count 173 L (182-369) K/mm3 MPV 10.0 (9.4-12.3) fl Neut % (Auto) 73.2 H (34.0-71.1) % Lymph % (Auto) 15.7 L (19.3-51.7) % [place] % (Auto) 9.4 (4.7-12.5) % Eos % (Auto) 1.1 (0.7-5.8) Baso % (Auto) 0.2 (0.1-1.2) % Neut # (Auto) 9.39 H (1.56-6.13) K/mm3 Lymph # (Auto) 2.02 (1.18-3.74) K/mm3 [place] # (Auto) 1.21 H (0.24-0.36) K/mm3 Eos # (Auto) 0.14 (0.04-0.36) K/mm3 Baso # (Auto) 0.02 (0.01-0.08) K/mm3 Manual Slide Review Sodium 135 L (136-145) mEq/L Potassium 4.2 (3.5-5.1) mEq/L Chloride 101 (98-107) mEq/L Carbon Dioxide 25 (21-32) mEq/L Anion Gap 13.2 (5-15) BUN 19 H (7-18) mg/dL Creatinine 1.2 H (0.55-1.02) mg/dL Est Cr Clr Drug Dosing 47.84 mL/min Estimated GFR (MDRD) 46 (>60) mL/min BUN/Creatinine Ratio 15.8 (14-18) Glucose 145 H (74-106) mg/dL POC Glucose (70-105) mg/dL Hemoglobin A1c (4.50-6.20) % Lactic Acid (0.4-2.0) mmol/L Calcium 8.4 L (8.5-10.1) mg/dL Phosphorus 2.9 (2.6-4.7) mg/dL Magnesium 1.7 L (1.8-2.4) mg/dl Total Bilirubin 0.5 (0.2-1.0) mg/dL AST 12 L (15-37) U/L ALT 23 (14-59) U/L Alkaline Phosphatase 82 (46-116) U/L C-Reactive Protein 17.4 H* (<1.0) mg/dL NT-Pro-B Natriuret Pep 327 H (0-125) pg/mL Total Protein 6.3 L (6.4-8.2) g/dl Albumin 2.5 L (3.4-5.0) g/dl Globulin 3.8 gm/dL Albumin/Globulin Ratio 0.7 L (1-2) Urine Color (Yellow) Urine Appearance (Clear) Urine pH (5.0-8.0) Ur Specific [place] (1.005-1.030) Urine Protein (Negative) Urine Glucose (UA) (Negative) Urine Ketones (Negative) Urine Occult Blood (Negative) Urine Nitrite (Negative) Urine Bilirubin (Negative) Urine Urobilinogen (0.2-1.0) Ur Leukocyte Esterase (Negative) Urine RBC (0-5) /hpf Urine WBC (0-5) /hpf Ur Squamous Epith Cells (0-5) /hpf Urine Bacteria (FEW) /hpf Urine Mucus (FEW) /hpf Ur Random Creatinine (30.0-125.0) mg/dL Ur Random Microalbumin (1.3-20.0) mg/L Microalb/Creat Ratio (0-30) mg/g SARS-CoV-2 RNA (NATHEN) (NEGATIVE) 05/30/20 Range/Units 06:28 WBC (3.98-10.04) K/mm3 RBC (3.98-5.22) M/mm3 Hgb (11.2-15.7) gm/dl Hct (34.1-44.9) % MCV (79.4-94.8) fl MCH (25.6-32.2) pg MCHC (32.2-35.5) g/dl RDW Std Deviation (36.4-46.3) fL Plt Count (182-369) K/mm3 MPV (9.4-12.3) fl Neut % (Auto) (34.0-71.1) % Lymph % (Auto) (19.3-51.7) % [place] % (Auto) (4.7-12.5) % Eos % (Auto) (0.7-5.8) Baso % (Auto) (0.1-1.2) % Neut # (Auto) (1.56-6.13) K/mm3 Lymph # (Auto) (1.18-3.74) K/mm3 [place] # (Auto) (0.24-0.36) K/mm3 Eos # (Auto) (0.04-0.36) K/mm3 Baso # (Auto) (0.01-0.08) K/mm3 Manual Slide Review Sodium (136-145) mEq/L Potassium (3.5-5.1) mEq/L Chloride (98-107) mEq/L Carbon Dioxide (21-32) mEq/L Anion Gap (5-15) BUN (7-18) mg/dL Creatinine (0.55-1.02) mg/dL Est Cr Clr Drug Dosing mL/min Estimated GFR (MDRD) (>60) mL/min BUN/Creatinine Ratio (14-18) Glucose (74-106) mg/dL POC Glucose 150 H (70-105) mg/dL Hemoglobin A1c (4.50-6.20) % Lactic Acid (0.4-2.0) mmol/L Calcium (8.5-10.1) mg/dL Phosphorus (2.6-4.7) mg/dL Magnesium (1.8-2.4) mg/dl Total Bilirubin (0.2-1.0) mg/dL AST (15-37) U/L ALT (14-59) U/L Alkaline Phosphatase (46-116) U/L C-Reactive Protein (<1.0) mg/dL NT-Pro-B Natriuret Pep (0-125) pg/mL Total Protein (6.4-8.2) g/dl Albumin (3.4-5.0) g/dl Globulin gm/dL Albumin/Globulin Ratio (1-2) Urine Color (Yellow) Urine Appearance (Clear) Urine pH (5.0-8.0) Ur Specific [place] (1.005-1.030) Urine Protein (Negative) Urine Glucose (UA) (Negative) Urine Ketones (Negative) Urine Occult Blood (Negative) Urine Nitrite (Negative) Urine Bilirubin (Negative) Urine Urobilinogen (0.2-1.0) Ur Leukocyte Esterase (Negative) Urine RBC (0-5) /hpf Urine WBC (0-5) /hpf Ur Squamous Epith Cells (0-5) /hpf Urine Bacteria (FEW) /hpf Urine Mucus (FEW) /hpf Ur Random Creatinine (30.0-125.0) mg/dL Ur Random Microalbumin (1.3-20.0) mg/L Microalb/Creat Ratio (0-30) mg/g SARS-CoV-2 RNA (NATHEN) (NEGATIVE) Med Orders - Current: Current Medications Acetaminophen (Tylenol) 650 mg PO Q4H PRN PRN Reason: Pain (Mild 1-3)/fever Hydrocodone Bitart/Acetaminophen ([place] 325-10 Mg) 1 tab PO Q4H PRN PRN Reason: Pain (moderate 4-6) Last Admin: 05/30/20 06:20 Dose: 1 tab Documented by: Diphenhydramine HCl (Benadryl) 25 mg PO BEDTIME PRN PRN Reason: Insomnia Last Admin: 05/29/20 21:57 Dose: 25 mg Documented by: Enoxaparin Sodium (Lovenox) 40 mg SUBCUT DAILY ALLYSSA Last Admin: 05/30/20 08:40 Dose: 40 mg Documented by: Hydralazine HCl (Apresoline) 10 mg IVPUSH Q4H PRN PRN Reason: Hypertension Vancomycin HCl 1 gm/Vancomycin HCl 250 mg/ Sodium Chloride 250 mls @ 166.667 mls/hr IV Q12H ALLYSSA Last Admin: 05/30/20 00:36 Dose: 166.667 mls/hr Documented by: Insulin Human Lispro (Humalog) 0 unit SUBCUT QIDACANDBED [facility]; Protocol Last Admin: 05/30/20 08:40 Dose: 1 unit Documented by: Losartan Potassium (Cozaar) 50 mg PO DAILY [facility] Last Admin: 05/30/20 08:39 Dose: 50 mg Documented by: Miscellaneous Information (Remove Patch) 1 ea TRDERM Q24H ALLYSSA Nicotine (Habitrol) 14 mg TRDERM Q24H ALLYSSA Ondansetron HCl (Zofran) 4 mg IV Q4H PRN PRN Reason: Nausea/Vomiting Sodium Chloride (Saline Flush) 10 ml FLUSH ASDIRECTED PRN PRN Reason: Keep Vein Open Last Admin: 05/29/20 11:51 Dose: 10 ml Documented by: Vancomycin HCl (Pharmacy To Dose - Vancomycin) 1 dose .XX ASDIRECTED PRN PRN Reason: RX TO DOSE VANCO Discontinued Medications Hydralazine HCl (Apresoline) 10 mg IVPUSH ONETIME ONE Stop: 05/29/20 12:45 Last Admin: 05/29/20 12:50 Dose: 10 mg Documented by: Hydromorphone HCl (Dilaudid) 0.5 mg IVPUSH ONETIME ONE Stop: 05/29/20 11:20 Sodium Chloride (Normal Saline) 1,000 mls @ 150 mls/hr IV NOW STA Stop: 05/29/20 17:58 Last Admin: 05/29/20 11:51 Dose: 150 mls/hr Documented by: Vancomycin HCl 1.75 gm/ Sodium (Chloride) 500 mls @ 250 mls/hr IV ONETIME ONE Stop: 05/29/20 15:29 Last Admin: 05/29/20 13:16 Dose: 250 mls/hr Documented by: Iopamidol (Isovue-300 (61%)) 100 ml IVPUSH ONETIME ONE Stop: 05/29/20 11:28 Last Admin: 05/29/20 12:15 Dose: 100 ml Documented by: Ketorolac Tromethamine (Toradol) 30 mg IVPUSH ONETIME ONE Stop: 05/29/20 11:21 Last Admin: 05/29/20 11:51 Dose: 30 mg Documented by: Miscellaneous Information (Remove Patch) 1 ea TRDERM Q24H [facility] Nicotine (Habitrol) 14 mg TRDERM Q24H ALLYSSA Last Admin: 05/29/20 17:06 Dose: 14 mg Documented by: Ondansetron HCl (Zofran) 4 mg IVPUSH ONETIME ONE Stop: 05/29/20 11:20 Last Admin: 05/29/20 11:50 Dose: 4 mg Documented by: Sodium Chloride (Saline Flush) 10 ml FLUSH ONETIME PRN PRN Reason: IV FLUSH Last Admin: 05/29/20 12:15 Dose: 10 ml Documented by: Tramadol HCl (Ultram) 50 mg PO ONETIME ONE Stop: 05/29/20 16:57 Last Admin: 05/29/20 17:07 Dose: 50 mg Documented by: Tramadol HCl (Ultram) 50 mg PO ONETIME ONE Stop: 05/29/20 18:12 Last Admin: 05/29/20 21:09 Dose: Not Given Documented by: Vancomycin HCl (Pharmacy To Dose - Vancomycin) 1 dose .XX ONETIME ONE Stop: 05/29/20 12:45 - Exam Quality Assessment: DVT Prophylaxis. No: Supplemental Oxygen General: Alert, Oriented, Cooperative, No Acute Distress HEENT: Pupils Equal, Pupils Reactive, Mucous Membr. Moist/[place] Neck: Supple, Trachea Midline Lungs: Clear to Auscultation, Normal Respiratory Effort Cardiovascular: Regular Rate, Regular Rhythm GI/Abdominal Exam: Normal Bowel Sounds, Non-Tender, No Distention (Female) Exam: Deferred Back Exam: Normal Inspection, Full Range of Motion Extremities: Normal Inspection, Normal Range of Motion, Non-Tender, No Pedal Edema, Normal Capillary Refill Skin: Warm, Dry, Intact, Other (Eschar approximately 1 cm in diameter on the right buttocks with surrounding area of erythema of approximately 9 to 10 cm. Well demarcated. PT Woundcare has been monitoring ) Wound/Incisions: Healing Well, Erythema Improving Neurological: No New Focal Deficit Psy/Mental Status: Alert, Normal Affect, Normal Mood Sepsis Event Note - Evaluation Sepsis Screening Result: No Definite Risk - Focused Exam Vital Signs: Vital Signs Temp Pulse Resp BP Pulse Ox 05/30/20 08:39 140/80 05/30/20 06:23 97.9 F 75 18 154/95 H 96 05/29/20 23:22 98.6 F 79 18 156/64 H 95 05/29/20 22:07 98.8 F 81 18 155/80 H 97 - Problem List & Annotations (1) Hypomagnesemia SNOMED Code(s): 425329874 Code(s): E83.42 - HYPOMAGNESEMIA Status: Acute Priority: High Current Visit: Yes (2) Acute renal injury SNOMED Code(s): 03456667, 25768557 Code(s): N17.9 - ACUTE KIDNEY FAILURE, UNSPECIFIED Status: Acute Priority: High Current Visit: Yes Annotation/Comment:: Acute versus chronic renal insufficiency. Patient has history of diabetes and also takes large amounts of NSAIDs for headaches daily. (3) Cellulitis SNOMED Code(s): 133161579 Code(s): L03.90 - CELLULITIS, UNSPECIFIED Status: Acute Priority: High Current Visit: Yes Qualifiers: Site of cellulitis: buttock Qualified Code(s): L03.317 - Cellulitis of buttock (4) Headache SNOMED Code(s): 89441202 Code(s): R51.9 - HEADACHE, UNSPECIFIED Status: Acute Priority: High Current Visit: Yes Qualifiers: Headache type: unspecified Headache chronicity pattern: unspecified pattern Intractability: not intractable Qualified Code(s): R51.9 - Headache, unsp ecified (5) Hypertension, uncontrolled SNOMED Code(s): 75980473, 45155731 Code(s): I10 - ESSENTIAL (PRIMARY) HYPERTENSION Status: Acute Priority: High Current Visit: Yes (6) Hypoalbuminemia SNOMED Code(s): 656372505 Code(s): E88.09 - OTH DISORDERS OF PLASMA-PROTEIN METABOLISM, NEC Status: Acute Priority: High Current Visit: Yes (7) Smoking SNOMED Code(s): 38829522 Code(s): F17.200 - NICOTINE DEPENDENCE, UNSPECIFIED, UNCOMPLICATED Status: Chronic Priority: Medium Current Visit: Yes (8) Type 2 diabetes mellitus SNOMED Code(s): 78468139 Code(s): E11.9 - TYPE 2 DIABETES MELLITUS WITHOUT COMPLICATIONS Status: Acute Priority: High Current Visit: Yes Qualifiers: Diabetes mellitus retirement insulin use: 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 * Cellulitis right butt cheek with eschar * WBC improved to 12.83 with 9.39 absolute neutrophils and normal smear. * C-reactive protein 17.3-->17.4 * Anion gap improved to 13.2 * Procalcitonin pending * Started on vancomycin in the emergency department for history of MRSA * Blood cultures done in the emergency department Uncontrolled/untreated hypertension, improved * Blood pressure significantly elevated on admission with highest blood pressure of 225/113. * Given hydralazine 10 mg IV in the emergency department * Blood pressure continues to be elevated. * Renal dysfunction also noted * Pain may be contributing to some degree of hypertension Type 2 diabetes mellitus * Hemoglobin A1c of 6.5 * Blood sugars 160-145 * No current treatment for her diabetes * Unknown any complications * Started sliding scale insulin * Urine random microalbumin is 2510.5 * Urine microalbumin creatinine ratio was 3264.6 * Patient reports glucometer at home is broken * 3+ protein on UA Acute versus chronic renal insufficiency * Patient states she has a history of headaches and takes ibuprofen and Excedrin Migraine. * Patient also has a history of diabetes and hypertension Headache disorder, unknown type, Resolved * She likely has some degree of rebound headache with her use of Excedrin Migraine * NSAID use is likely worsening renal function * Try to avoid NSAIDs while hospitalized Hypoalbuminemia * Urine microalbumin and microalbumin/creatinine ratio as above. * 3+ protein on UA Tobaccoism * Smokes half pack per day for approximately 35 years * Patient requesting patch Hypomagnesemia * Magnesium 1.7 Plan * Admit to floor * Continue vancomycin, pharmacy to dose * Wound therapy to treat buttocks wound * Follow white count, C-reactive protein, procalcitonin, temperature, and measure and familia cellulitis * Blood cultures drawn in the emergency department * Continue losartan 50 mg daily * Supplement magnesium * Sliding scale insulin * Hydralazine 10 mg IV every 4 hours as needed systolic blood pressure greater than 180 and diastolic blood pressure greater than 110 * [place] 325/10 mg every 4 hours as needed pain. * Counseled on smoking cessation and nicotine patch prescribed * medical educator consultation - patient needs home glucometer * VTE prophylaxis with Lovenox * CODE STATUS: Full code
[2020-05-30] MEDS: Nicotine 14 MG/24 Hr Patch TRDERM SCH (09:49)
[2020-05-30] MEDS ORDERED: Magnesium Sulfate/Water 2 GM/50 ML BAG IV ONE (10:36)
[2020-05-30] MEDS: Acetaminophen 325 MG Tab PO PRN ×2 (11:58→18:15)
[2020-05-30] MEDS ORDERED: traMADol 50 MG Tab PO PRN (14:48)
[2020-05-30] MEDS: Sennosides 8.6 MG Tab PO SCH (16:14)
[2020-05-30] MEDS: diphenhydrAMINE 25 MG Cap PO PRN (21:30)
[2020-05-31] MEDS: Vancomycin 1 GM, Vancomycin 250 MG in Sodium Chloride 0.9% 250 ML IV SCH ×2 (00:33→16:02)
[2020-05-31] MEDS: Acetaminophen/HYDROcodone 325-10 MG Tab PO PRN ×4 (00:47→18:10)
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
--- NOTE | 2020-05-31 08:44 | CT ---
CT pelvis Technique: Multiple axial sections through the pelvis were obtained. Intravenous contrast was utilized. No oral contrast has been given. Reconstructed coronal and sagittal images were obtained. Findings: Diffuse subcutaneous edema and skin thickening is seen within the right buttocks. This extends into a portion of the midline. This likely represents diffuse cellulitis. No focal fluid collections are seen to indicate discrete abscess. There is disc space narrowing and vacuum phenomena within the L5-S1 disc. No focal osseous erosions are seen. No intrapelvic abnormality is appreciated. Impression: 1. Subcutaneous edema within the right buttock and skin. This most likely represents diffuse cellulitis. 2. No evidence of abscess. Diagnostic code #3 I agree with preliminary report from [facility], finalized on 05/29/20, 1:29 PM ELECTROLYSIS INVESTIGATOR MICHAEL
[2020-05-31] MEDS: Nicotine 14 MG/24 Hr Patch TRDERM SCH (08:48)
[2020-05-31] MEDS: Sennosides 8.6 MG Tab PO SCH ×2 (08:49→21:39)
[2020-05-31] MEDS: Enoxaparin 40 MG/0.4 ML Syringe SUBCUT SCH (08:49)
[2020-05-31] MEDS: Losartan 50 MG Tab PO SCH (08:49)
[2020-05-31] MEDS: Acetaminophen 325 MG Tab PO PRN (08:50)
[2020-05-31] MEDS ORDERED: Magnesium Hydroxide 400 MG/5 ML Susp 30 ML Cup PO ONE (09:00)
[2020-05-31] MEDS ORDERED: Magnesium Sulfate/Water 4 GM in Premix Bag 1 BAG IV ONE (11:00)
--- NOTE | 2020-05-31 16:12 | CONS ---
CONSULTING PHYSICIAN: Yong Valerio MD DATE OF CONSULTATION: 05/31/2020 This is a 60-minute inpatient clinical event. IDENTIFICATION: The patient is a 60-year-old female who is admitted to the inpatient Med/Surg Unit at [facility] in [place], [place]. She is seen for psychiatric consultation per the request of staff attending, Dr. Layton, and his treatment team. CHIEF COMPLAINT: "I have MRSA." HISTORY OF PRESENT ILLNESS: The patient is a 60-year-old female who is admitted to the inpatient Med/Surg Unit at [facility] in [place], [place], on 05/29/2020 secondary to complications from posterior cellulitis. The patient is also endorsing symptoms of depressed mood and increased anxiety. She states "my mom of cancer" back in 06/2019 and right now her is in rehab for alcohol, and she is having a real hard time emotionally. She states "my mind is just racing" all the evening long, and she has a lot of ruminations too. She states she cannot sleep more than "4 to 5 hours at the most, if that." She states that she had been on Prozac and Klonopin separately in the past and both of these medications worked. Prozac helped improve her mood. The Klonopin helped her sleep better. She is open to trying these medications again as she feels that she is just so depressed she is much more isolative than normal as well. She states "I just wanna feel better." She denies that she is suicidal or homicidal. She denies any psychotic, delusional, or paranoid symptoms. She denies any illicit substance use or excessive alcohol use complicating the clinical picture. MEDICATIONS AT THE TIME OF PRESENTATION: No home psych medications, but the patient has been placed on IV vancomycin since admission. ALLERGIES: Adhesive tape. PAST MEDICAL HISTORY: 1. MRSA positive status. 2. History of posterior cellulitis. 3. History of type 2 diabetes. 4. Reported history of obesity. REVIEW OF SYSTEMS: Aside from musculoskeletal, endocrine, and immune, all other major organ-systems are negative at this point in time for acute difficulties or complications. FAMILY PSYCHIATRIC AND CD HISTORY: None reported. PAST PSYCHIATRIC AND CD HISTORY: The patient denies any previous psychiatric hospitalizations or chemical dependency treatments. She is a 1/2 to 3/4 pack per day smoker for the past 45 years. Denies any previous suicide attempts or self-injurious behavior history. Does not report any eating disorder history or any abuse issues while being raised. Past psychiatric medication history includes clonazepam as well as Prozac, both of which were given separately and both of which worked when the patient took the medications. Past psychiatric diagnoses includes clinical depression and anxiety. SOCIAL HISTORY: The patient was born and raised in the state of [place]. She has been living in [place], [place], since 12/2018 after she and her came to [place] for better job prospects. The patient and her had both recently been working at [employer]. The patient does not report any prior history of service or any current legal difficulties. She is Worship in terms of her ellyn formation. She enjoys walking and outdoor activities in her spare time when she is feeling better. MENTAL STATUS EXAM: The patient is a 60-year-old white female in no apparent distress. Speech is of regular rate and rhythm. The patient is cognitively oriented x3. Psychomotor activity is within normal limits. There is no abnormal motor movements or tics observed. Gait is not observed. Station is not observed. This patient is seated up in bed during the interview. Mood is depressed. Affect is consistent with stated mood, restricted, tearful, but cooperative overall for the purposes of the inpatient consult. There is no behavioral or stated evidence of acute suicidal or homicidal ideation or acute psychotic, delusional, or paranoid symptoms. Thought processes are significant for racing thoughts, ruminations, however, there are no manic symptoms or loose associations evident. Judgment and insight appear unimpaired at this point in time. Motivation for help is good. VITALS: 134/81, 74, 20, and 98.1 degrees. IMPRESSION: [place] I: 1. Major depressive disorder, recurrent F33.2. 2. Anxiety disorder, not otherwise specified, F41.9. 3. Rule out bipolar affective disease, mixed type. [place] II: None. [place] III: 1. MRSA positive status. 2. Posterior cellulitis. 3. Type 2 diabetes. 4. Obesity. [place] IV: Severe. Hazleton V: 60. PLAN: 1. Begin trial of Klonopin 1 mg at bedtime for anxiety reduction, sleep initiation and maintenance. 2. Begin Prozac 20 mg at bedtime for symptoms of depression. 3. The patient is apprised of benefits and side effects of her newly initiated psychiatric medication regimen. She acknowledges understanding these facts. She has no further questions by the end of the interview session. 4. Other medications as dosed and prescribed by the patient's primary inpatient medical treatment team. 5. Medication compliance. 6. Pastoral guidance. 7. The patient is instructed to follow up with outpatient Psychiatry when she is medically stabilized and discharged back to community to assess her overall function, efficacy of her newly initiated psychiatric medication regimen. 8. We will continue to follow up with the patient on an as-needed basis while she remains on the inpatient Med/Surg Unit at [facility] in [place], [place]. 9. We will follow up with the patient sooner if any complications in the interim. 10.Crisis plan is in place. VIK /[id number]
[2020-05-31] MEDS: FLUoxetine 20 MG Cap PO SCH (21:39)
[2020-05-31] MEDS: ClonazePAM 1 MG Tab PO SCH (21:39)
[2020-06-01] MEDS: Vancomycin 1 GM, Vancomycin 250 MG in Sodium Chloride 0.9% 250 ML IV SCH (02:37)
[2020-06-01] MEDS ORDERED: Bisacodyl 10 MG Supp RECTAL ONE (05:30)
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
[2020-06-01] MEDS: Nicotine 14 MG/24 Hr Patch TRDERM SCH (09:15)
[2020-06-01] MEDS: Losartan 50 MG Tab PO SCH (09:17)
[2020-06-01] MEDS: Acetaminophen/HYDROcodone 325-10 MG Tab PO PRN ×2 (09:18→16:27)
[2020-06-01] MEDS: Sennosides 8.6 MG Tab PO SCH ×2 (09:18→20:58)
[2020-06-01] MEDS: Enoxaparin 40 MG/0.4 ML Syringe SUBCUT SCH (09:18)
[2020-06-01] MEDS: FLUoxetine 20 MG Cap PO SCH (20:58)
[2020-06-01] MEDS: Doxycycline 100 MG Cap PO SCH (20:59)
[2020-06-01] MEDS: ClonazePAM 1 MG Tab PO SCH (20:59)
[2020-06-02] MEDS: Enoxaparin 40 MG/0.4 ML Syringe SUBCUT SCH (08:35)
[2020-06-02] MEDS: Losartan 50 MG Tab PO SCH (08:35)
[2020-06-02] MEDS: Sennosides 8.6 MG Tab PO SCH (08:35)
[2020-06-02] MEDS: Doxycycline 100 MG Cap PO SCH (08:35)
[2020-06-02] MEDS: Acetaminophen/HYDROcodone 325-10 MG Tab PO PRN (08:36)
[2020-06-02] MEDS: Nicotine 14 MG/24 Hr Patch TRDERM SCH (08:44)
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
[2020-06-02] MEDS ORDERED: FLU VACC QS2020-21(6MOS UP)/PF 60 MCG/0.5 ML SYRINGE IM ONE (13:15)
== END 2020-06-02 13:20 | disposition home or self-care (01) | DRG 603 ==
LOC: JD.ED 10:36 → JD.MS 13:19
PROVIDERS: ADMIT Family Medicine; ATTEND Family Medicine
DX: L03.317 Cellulitis of buttock (principal); N17.9 Acute kidney failure, unspecified; F33.2 Major depressive disorder, recurrent severe without psychotic features; I10 Essential (primary) hypertension; E11.9 Type 2 diabetes mellitus without complications; F41.9 Anxiety disorder, unspecified; E83.42 Hypomagnesemia; R51.9 Headache, unspecified; E88.09 Other disorders of plasma-protein metabolism, not elsewhere classified; F17.200 Nicotine dependence, unspecified, uncomplicated; E78.5 Hyperlipidemia, unspecified; Z90.49 Acquired absence of other specified parts of digestive tract; Z90.89 Acquired absence of other organs; Z90.710 Acquired absence of both cervix and uterus; Z20.822 Contact with and (suspected) exposure to COVID-19
CPT/HCPCS: 36415; 72193; 72193-26; 80048; 80053; 80202; 81001; 82043; 82570; 82962; 83036; 83605; 83735; 83880; 84100; 84156; 85025; 86140; 87040; 90686; 96374; 96375; 97161-GP; 97597-GP; 99284; 99284-25; A9270-GY; G0008; J0360; J1650; J1815-GY; J1885; J2405; J3370; J3475; J7030; J7040; J7050; Q9967; U0002

== ENCOUNTER 2020-06-26 09:43 | Emergency (ER) | payer MEDICAID ==
[2020-06-26] MEDS ORDERED: Sodium Chloride 0.9% 10 ML Syringe FLUSH PRN (10:05)
[2020-06-26] MEDS ORDERED: HYDROmorphone 1 MG/ML Syringe IVPUSH ONE (10:06)
--- NOTE | 2020-06-26 10:23 | EDM.PDOC ---
ED HPI GENERAL MEDICAL PROBLEM - General Chief Complaint: Cardiovascular Problem Stated Complaint: L SIDE NECK PAIN/HIGH BP/HEADACHE Time Seen by Provider: 06/26/20 09:50 Source of Information: Reports: Patient History Limitations: Reports: No Limitations - History of Present Illness INITIAL COMMENTS - FREE TEXT/NARRATIVE: The patient presents with a headache and left sided neck pain. This started yesterday. Her blood pressure is also elevated. She had some recent changes to her losartan. They increased it. She has no fever, chills, cough, chest pain, shortness of breath, abdominal pain, nausea or vomiting. She has no numbness or weakness. Onset: Gradual Duration: Day(s): (yesterday) Location: Reports: Head, Neck Quality: Reports: Sharp Severity: Moderate Improves with: Reports: None Worsens with: Reports: None Associated Symptoms: Reports: Headaches. Denies: Chest Pain, Cough, Fever/Chills, Nausea/Vomiting, Shortness of Breath Frontal Head Pain Score (Numeric/FACES): 6 - Related Data Allergies Allergy/AdvReac Type Severity Reaction Status Date / Time adhesive tape Allergy Intermediate Rash Verified 06/26/20 09:53 Home Meds: Home Meds Acetaminophen/HYDROcodone [[place] 325-10 MG] 1 tab PO Q6H PRN #12 tablet 06/02/20 [Rx] FLUoxetine [PROzac] 20 mg PO BEDTIME #40 cap 06/02/20 [Rx] Aspirin [Aspirin EC] 81 mg PO DAILY 06/26/20 [History] ClonazePAM [KlonoPIN] 1 mg PO BEDTIME PRN 06/26/20 [History] Losartan [Cozaar] 100 mg PO DAILY 06/26/20 [History] atorvaSTATin [Lipitor] 40 mg PO DAILY 06/26/20 [History] hydroCHLOROthiazide [Hydrochlorothiazide] 50 mg PO DAILY #30 tab 06/26/20 [Rx] Past Medical History Cardiovascular History: Reports: High Cholesterol, Hypertension 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: Reports: Musculoskeletal History: Reports: Arthritis Other Musculoskeletal History: RLS Neurological History: Reports: Migraines Psychiatric History: Reports: Anxiety, Depression Endocrine/Metabolic History: Reports: Diabetes, Type II, Obesity/BMI 30+, Other (See Below) Other Endocrine/Metabolic History: "pre-diabetes" Dermatologic History: Reports: Cellulitis Other Dermatologic History: boils on buttocks - Infectious Disease History Infectious Disease History: Reports: MRSA - Past Surgical History HEENT Surgical History: Reports: Adenoidectomy, Tonsillectomy GI Surgical History: Reports: Cholecystectomy Female Surgical History: Reports: Hysterectomy Social & Family History - Tobacco Use Tobacco Use Status *Q: Current Every Day Tobacco User Years of Tobacco use: 48 Packs/Tins Daily: 0.5 - Caffeine Use Caffeine Use: Reports: Coffee - Recreational Drug Use Recreational Drug Use: No ED ROS GENERAL - Review of Systems Review Of Systems: See Below Constitutional: Reports: No Symptoms HEENT: Reports: No Symptoms Respiratory: Reports: No Symptoms Cardiovascular: Reports: No Symptoms Endocrine: Reports: No Symptoms GI/Abdominal: Reports: No Symptoms : Reports: No Symptoms Musculoskeletal: Reports: Neck Pain (left side) Neurological: Reports: Headache ED EXAM, GENERAL - Physical Exam Exam: See Below Exam Limited By: No Limitations General Appearance: Alert, No Apparent Distress Ears: Normal External Exam Nose: Normal Inspection Head: Atraumatic, Normocephalic Neck: Tender Lateral (left), Other (no carotid bruit noted) Respiratory/Chest: No Respiratory Distress, Lungs Clear, Normal Breath Sounds Cardiovascular: Regular Rate, Rhythm, No Edema, No Murmur GI/Abdominal: Soft, Non-Tender, No Organomegaly, No Mass Extremities: Normal Inspection Neurological: Alert, Oriented, No Motor/Sensory Deficits #1 Interpretation EKG Date: 06/26/20 Time: 10:01 Rhythm: NSR Rate (Beats/Min): 61 [place]: Normal P-Wave: Present QRS: Normal ST-T: Normal QT: Normal Course - Vital Signs Last Recorded V/S: Last Vital Signs Temp 96.6 F L 06/26/20 09:48 Pulse 68 06/26/20 09:48 Resp BP 222/114 H 06/26/20 09:48 Pulse Ox - Orders/Labs/Meds Orders: Active Orders 24 hr Category Date Time Status Cardiac Monitoring [RC] . DIRECTED Care 06/26/20 10:05 Active EKG Documentation Completion [RC] ASDIRECTED Care 06/26/20 09:55 Active Peripheral IV Care [RC] . DIRECTED Care 06/26/20 10:06 Active Sodium Chloride 0.9% [Saline Flush] Med 06/26/20 10:05 Active 10 ml FLUSH ASDIRECTED PRN Peripheral IV Insertion Adult [OM.PC] Stat Oth 06/26/20 10:05 Ordered EKG 12 Lead [EK] Stat Ther 06/26/20 09:55 Ordered Medication Orders Sodium Chloride (Saline Flush) 10 ml FLUSH ASDIRECTED PRN PRN Reason: Keep Vein Open Labs: Laboratory Tests 06/26/20 06/26/20 Range/Units 09:56 09:56 WBC 5.16 (3.98-10.04) K/mm3 RBC 4.75 (3.98-5.22) M/mm3 Hgb 14.1 (11.2-15.7) gm/dl Hct 43.7 (34.1-44.9) % MCV 92.0 (79.4-94.8) fl MCH 29.7 (25.6-32.2) pg MCHC 32.3 (32.2-35.5) g/dl RDW Std Deviation 45.1 (36.4-46.3) fL Plt Count 170 L (182-369) K/mm3 MPV 10.1 (9.4-12.3) fl Neut % (Auto) 47.8 (34.0-71.1) % Lymph % (Auto) 41.5 (19.3-51.7) % [place] % (Auto) 6.8 (4.7-12.5) % Eos % (Auto) 3.1 (0.7-5.8) Baso % (Auto) 0.6 (0.1-1.2) % Neut # (Auto) 2.47 (1.56-6.13) K/mm3 Lymph # (Auto) 2.14 (1.18-3.74) K/mm3 [place] # (Auto) 0.35 (0.24-0.36) K/mm3 Eos # (Auto) 0.16 (0.04-0.36) K/mm3 Baso # (Auto) 0.03 (0.01-0.08) K/mm3 Sodium 138 (136-145) mEq/L Potassium 4.2 (3.5-5.1) mEq/L Chloride 103 (98-107) mEq/L Carbon Dioxide 24 (21-32) mEq/L Anion Gap 15.2 H (5-15) BUN 20 H (7-18) mg/dL Creatinine 1.2 H (0.55-1.02) mg/dL Est Cr Clr Drug Dosing 47.84 mL/min Estimated GFR (MDRD) 46 (>60) mL/min BUN/Creatinine Ratio 16.7 (14-18) Glucose 116 H (74-106) mg/dL Calcium 8.4 L (8.5-10.1) mg/dL Total Bilirubin 0.3 (0.2-1.0) mg/dL AST 15 (15-37) U/L ALT 27 (14-59) U/L Alkaline Phosphatase 78 (46-116) U/L Troponin I < 0.017 (0.00-0.056) ng/mL Total Protein 7.1 (6.4-8.2) g/dl Albumin 3.5 (3.4-5.0) g/dl Globulin 3.6 gm/dL Albumin/Globulin Ratio 1.0 (1-2) Meds: Medications Generic Name Dose Route Start Last Admin Trade Name Freq PRN Reason Stop Dose Admin Sodium Chloride 10 ml 06/26/20 10:05 Saline Flush FLUSH ASDIRECTED PRN Keep Vein Open Discontinued Medications Generic Name Dose Route Start Last Admin Trade Name Freq PRN Reason Stop Dose Admin Diphenhydramine HCl 50 mg 06/26/20 10:29 06/26/20 10:41 Benadryl IVPUSH 06/26/20 10:30 50 mg ONETIME ONE Administration Hydromorphone HCl 1 mg 06/26/20 10:06 06/26/20 10:34 Dilaudid IVPUSH 06/26/20 10:07 Not Given ONETIME ONE Ketorolac Tromethamine 30 mg 06/26/20 10:29 06/26/20 11:19 Toradol IVPUSH 06/26/20 10:30 Not Given ONETIME ONE Metoclopramide HCl 10 mg 06/26/20 10:29 06/26/20 10:41 Reglan IVPUSH 06/26/20 10:30 10 mg ONETIME ONE Administration - Re-Assessments/Exams Free Text/Narrative Re-Assessment/Exam: 06/26/20 10:22 I ordered an IV saline lock, EKG, CT of her head, dilaudid 1mg IV and labs. 06/26/20 12:[address] of her head looks good. Her EKG shows a NSR with no acute changes. Her CBC looks good. Her creatinine was 1.2. Her troponin is negative. Her BP has come down. Her headache is better. She did not want the dilaudid or toradol so I gave her reglan and benadryl. I called Nataliia Menon and she wanted me to started some HCTZ and she will see her in the clinic. The patient also said the statin is giving her muscle aches. She wants her to stop it and they will talk later about other options. Departure - Departure Time of Disposition: 12:15 Disposition: Home, Self-Care 01 Condition: Good Clinical Impression: Headache Qualifiers: Headache type: other headache syndrome Qualified Code(s): G44.89 - Other headache syndrome Hypertension Qualifiers: Hypertension type: essential hypertension Qualified Code(s): I10 - Essential (primary) hypertension Prescriptions: hydroCHLOROthiazide [Hydrochlorothiazide] 50 mg PO DAILY #30 tab Referrals: Nataliia Menon PA-C [Primary Care Provider] - 1 Week Forms: ED Department Discharge Additional Instructions: Stop taking the lipitor or statin. Nataliia will talk to you at your next clinic visit within a week. Please follow up with her. Take the rest of your medicines the same. Add hydrochlorothiazide 50mg daily. Please return if you are worse. Sepsis Event Note (ED) - Evaluation Sepsis Screening Result: No Definite Risk - Focused Exam Vital Signs: Vital Signs Temp Pulse BP 06/26/20 09:48 96.6 F L 68 222/114 H - My Orders Last 24 Hours: My Active Orders 06/26/20 09:55 EKG Documentation Completion [RC] ASDIRECTED EKG 12 Lead [EK] Stat 06/26/20 10:05 Cardiac Monitoring [RC] . DIRECTED Sodium Chloride 0.9% [Saline Flush] 10 ml FLUSH ASDIRECTED PRN Peripheral IV Insertion Adult [OM.PC] Stat 06/26/20 10:06 Peripheral IV Care [RC] . DIRECTED - Assessment/Plan Last 24 Hours: My Active Orders 06/26/20 09:55 EKG Documentation Completion [RC] ASDIRECTED EKG 12 Lead [EK] Stat 06/26/20 10:05 Cardiac Monitoring [RC] . DIRECTED Sodium Chloride 0.9% [Saline Flush] 10 ml FLUSH ASDIRECTED PRN Peripheral IV Insertion Adult [OM.PC] Stat 06/26/20 10:06 Peripheral IV Care [RC] . DIRECTED
[2020-06-26] MEDS ORDERED: Ketorolac 30 MG/ML SDV IVPUSH ONE (10:29)
[2020-06-26] MEDS ORDERED: Metoclopramide 10 MG/2 ML SDV IVPUSH ONE (10:29)
[2020-06-26] MEDS ORDERED: diphenhydrAMINE 50 MG/ML SDV IVPUSH ONE (10:29)
--- NOTE | 2020-06-26 11:55 | CT ---
Head CT Technique: Multiple axial sections through the brain were obtained. Intravenous contrast was not utilized. Reconstructed coronal and sagittal images were obtained. Comparison: No prior intracranial imaging is available. Findings: Ventricles along with basal cisterns and sulci over the convexities are within normal limits for the patient's age. No abnormal parenchymal densities are seen. No evidence of intracranial hemorrhage. No midline shift or mass-effect is appreciated. Bone window settings were reviewed. Sphenoid sinus shows minimal mucosal thickening. Nothing acute is appreciated within the visualized paranasal sinuses. Mastoid sinuses show nothing acute. No acute calvarial finding is appreciated Impression: 1. No acute abnormality is identified on noncontrast head CT exam. Diagnostic code #1
== END 2020-06-26 12:43 | disposition home or self-care (01) ==
LOC: JD.ED 09:43
DX: G44.89 Other headache syndrome (principal); I10 Essential (primary) hypertension; M19.90 Unspecified osteoarthritis, unspecified site; E11.9 Type 2 diabetes mellitus without complications; E66.9 Obesity, unspecified; Z72.0 Tobacco use; Z68.39 Body mass index [BMI] 39.0-39.9, adult; Z91.048 Other nonmedicinal substance allergy status; Z79.82 Long term (current) use of aspirin
CPT/HCPCS: 36415; 70450; 80053; 84484; 85025; 93005; 96374; 96375; 99284; J1200; J2765; 93010

== ENCOUNTER 2024-03-26 13:38 | Emergency (ER) | payer BC, MEDICAID ==
[2024-03-26] MEDS: Clopidogrel 75 MG Tab PO ONE (15:24)
== END 2024-03-26 16:35 | disposition home or self-care (01) ==
LOC: JD.ED 13:38
DX: I63.312 Cerebral infarction due to thrombosis of left middle cerebral artery (principal); I10 Essential (primary) hypertension; E11.69 Type 2 diabetes mellitus with other specified complication; E78.00 Pure hypercholesterolemia, unspecified; Z90.49 Acquired absence of other specified parts of digestive tract; Z90.710 Acquired absence of both cervix and uterus; Z79.82 Long term (current) use of aspirin; Z79.899 Other long term (current) drug therapy; Z91.048 Other nonmedicinal substance allergy status
CPT/HCPCS: 70544; 70551; 99285; A9270